=== PATIENT | male | born 1980 | race Caucasian/White ===

== ENCOUNTER 2016-12-25 10:09 | Emergency (ER) | payer OTHER ==
[~2016-12-25] VITALS: Ht 177.8 cm; Wt 104.3 kg
[~2016-12-25 10:09] MED LIST: BUPR100T8 PO; RISP2TAB3 PO; TEMA30CA4 PO; TOPI50TA16 PO
[2016-12-25 10:11] VITALS: TEMP 36.4; Ht 177.8 cm; Wt 104.3 kg
[2016-12-25] MEDS ORDERED: SODIUM CHLORIDE 0.9% 1000ML 1,000 ML IV STA (10:55)
[2016-12-25] MEDS ORDERED: KETOROLAC TROMETHAMINE 30 MG/ML VIAL IV STA ×2 (10:55→11:04)
[2016-12-25] MEDS ORDERED: ONDANSETRON INJ 2 MG/ML 2 ML VIAL IV STA (11:04)
[2016-12-25] MEDS ORDERED: GI COCKTAIL PO STA (11:04)
[2016-12-25 11:06] LABS: URINE APPEARANCE CLEAR (CLEAR); URINE BILIRUBIN NEG (NEG); URINE COLOR YELLOW; URINE EPITHELIAL CELL AUTO 0-5 /lpf (0-5); URINE NITRITE NEG (NEG); URINE PH 7.5 (4.5-7.5); URINE SPECIFIC GRAVITY 1.015 (1.000-1.030); UROBILINOGEN NEG (NEG); ZZUR CULT IF INDIC CLEAN CATCH NO
[2016-12-25 11:08] LABS: MANUAL MICROSCOPIC REQUIRED? NO; REVIEW REQ? NO
[2016-12-25] MEDS ORDERED: LIDOCAINE HCL 2% VISC SOLN 20 ML UDC ONE (11:11)
[2016-12-25] MEDS ORDERED: ALUMINUM/MAGNESIUM SUSP 30 ML UDC ONE (11:11)
[2016-12-25 11:50] LABS: BASO % 0.1 %; BASO ABS # 0.01 K/uL (0-0.2); COMPLETE YES; HEMATOCRIT 42.4 % (42-52); IG% 0.4 %; LYMPH % 22.3 %; LYMPH ABS # 1.49 K/uL (1.2-3.4); MEAN CELL VOLUME 89.3 fL (80-100); MEAN CORPUSCULAR HEMOGLOBIN 32.4 pg (25-34); MEAN CORPUSCULAR HGB CONC 36.3 g/dl (32-36); MEAN PLATELET VOLUME 9.3 fL (7.4-10.4); MONO % 6.3 %; NEUT % 67.9 %; PLATELET COUNT 190 K/uL (130-400); RED BLOOD COUNT 4.75 M/uL (4.7-6.1); WHITE BLOOD COUNT 6.68 K/uL (4.8-10.8)
[2016-12-25 12:01] LABS: BUN/CREATININE RATIO 12.2 (10-20); CALCIUM 9.1 mg/dl (8.5-10.1); CREATININE 1.1 mg/dl (0.60-1.40); POTASSIUM 3.7 mmol/L (3.5-5.1)
--- NOTE | 2016-12-25 12:07 | DIAGNOSTIC IMAGING REPORT ---
ABDOMEN 2VIEW W/PA CHEST RTN HISTORY: 36 years-old Male luq abd pain acute left upper quadrant abdominal pain. COMPARISON: Acute abdominal series radiographs 04/06/2015 TECHNIQUE: Frontal view of the chest with erect and supine views of the abdomen FINDINGS: Cardiomediastinal and hilar silhouettes are within normal limits. No pneumothorax, pleural effusion or focal airspace consolidation. Cholecystectomy clips are noted. Surgical clips within the right lower pelvis are also present. There is no pneumoperitoneum on the upright projection. No urolithiasis identified. There are multiple nondilated air-filled loops of bowel throughout the abdomen with scattered air-fluid levels. No fracture. IMPRESSION: 1. Multiple nondilated air-filled loops of bowel throughout the abdomen with scattered air-fluid levels is nonspecific. Differential considerations would include enteritis or ileus. 2. No evidence of bowel obstruction or pneumoperitoneum. 3. No acute cardiopulmonary process. The above report was generated using voice recognition software. It may contain grammatical, syntax or spelling errors. Electronically signed by: Conor Marina M.D. 12/25/2016 12:06 PM Dictated Date/Time: 12/25/2016 12:03 PM
[2016-12-25] MEDS ORDERED: MECLIZINE HCL 25 MG TAB PO STA (12:16)
[2016-12-25] MEDS ORDERED: TPM100 PO (12:18)
[2016-12-25] MEDS ORDERED: WLLSR150 PO (12:18)
[2016-12-25] MEDS ORDERED: TRAZ100T29 PO (12:18)
[2016-12-25] MEDS ORDERED: PANT40TA PO (12:18)
[2016-12-25 12:54] VITALS: BP 139/96; PULSE 55; O2SAT 100
--- NOTE | 2016-12-25 17:04 | EMERGENCY ROOM VISIT NOTE ---
History Report prepared by Marychuy: Vanessa Cedeno Under the Supervision of: Dr. Davin Marks D.O. First contact with patient: 10:37 Chief Complaint: ABDOMINAL PAIN Stated Complaint: ABD. PAIN IN LEFT UPPER QUAD Nursing Triage Summary: abdominal pain started on friday. denies v/d History of Present Illness The patient is a 36 year old male who presents to the Emergency Room with complaints of worsening LUQ abdominal pain for the past 5 days. The patient celebrated his birthday 6 days ago and went out drinking. He states that he had too much to drink and "over did it" that night. He woke up the next morning with LUQ abdominal pain. He went to the ED in [place] that night. They thought it was gastritis and gave the patient a GI cocktail. He was placed on Protonix and told to eat a bland diet. The patient states that this has not helped his pain. A couple of days ago he noticed some bruising around the area that is painful. He rates his pain as a 9/10 in severity. Movement exacerbates his pain. It is not worse with eating or drinking and he has been eating and drinking normally. Pt denies headache, change in vision, fevers, chest pain, shortness of breath, nausea, vomiting, diarrhea, pain with urination, and testicular pain. He does not take any blood thinners. He has been having normal bowel movements. Source of History: patient Onset: 5 days ago Position: abdomen (LUQ) Symptom Intensity: 9/10 Timing: worsening Modifying Factors (Worsening): movement Associated Symptoms: No fevers, No headache, No chest pain, No SOB, No nausea, No vomiting, No diarrhea, No urinary symptoms Review of Systems See HPI for pertinent positives & negatives. A total of 10 systems reviewed and were otherwise negative. Past Medical & Surgical Medical Problems: (1) Bipolar II disorder Surgical Problems: (1) Hx of appendectomy (2) Hx of cholecystectomy Family History Diabetes mellitus FH: cancer FH: gallbladder disease FH: heart disease FH: lung disease Hypertension Kidney disease Kidney stones Social History Smoking Status: Never Smoker Alcohol Use: occasionally Drug Use: marijuana Marital Status: single Housing Status: lives alone Occupation Status: employed Current/Historical Medications Scheduled Bupropion HCl (Bupropion HCl Sr), 150 MG PO QAM Pantoprazole Sodium (Protonix), 40 MG PO DAILY Risperidone (Risperdal), 2 MG PO HS Topiramate (Topiramate), 100 MG PO DAILY Scheduled PRN Trazodone Hcl (Trazodone), 200 MG PO HS PRN for Sleep Allergies Coded Allergies: Penicillins (Unverified Allergy, Unknown, throat swelling, 12/25/16) Physical Exam Vital Signs Date Time Temp Pulse Resp B/P (MAP) Pulse Ox O2 Delivery O2 Flow Rate FiO2 12/25/16 12:54 55 15 139/96 100 12/25/16 12:17 52 17 148/104 100 Room Air 12/25/16 11:15 54 16 124/83 99 Room Air 12/25/16 10:11 36.4 89 18 158/100 98 Physical Exam GENERAL: alert, sitting up in bed, well appearing, well nourished, no distress, non-toxic EYE EXAM: normal conjunctiva OROPHARYNX: no exudate, no erythema, lips, buccal mucosa, and tongue normal and mucous membranes are moist NECK: supple, no nuchal rigidity, no adenopathy, non-tender LUNGS: Clear to auscultation. Normal chest wall mechanics HEART: no murmurs, S1 normal and S2 normal ABDOMEN: abdomen soft, bruise on left upper flank/quadrant with acute tenderness to palpation, normo-active bowel sounds, no masses, no rebound or guarding. BACK: Back is symmetrical on inspection and there is no deformity, no midline tenderness, no CVA tenderness. SKIN: no rashes and no bruising UPPER EXTREMITIES: upper extremities are grossly normal. LOWER EXTREMITIES: No pitting edema. NEURO EXAM: Normal sensorium, cranial nerves II-XII grossly intact, normal speech, no gross weakness of arms, no gross weakness of legs. Medical Decision & Procedures ER Provider Diagnostic Interpretation: Radiology results as stated below per my review and the radiologist's interpretation: ABDOMEN 2VIEW W/PA CHEST RTN HISTORY: 36 years-old Male luq abd pain acute left upper quadrant abdominal pain. COMPARISON: Acute abdominal series radiographs 04/06/2015 TECHNIQUE: Frontal view of the chest with erect and supine views of the abdomen FINDINGS: Cardiomediastinal and hilar silhouettes are within normal limits. No pneumothorax, pleural effusion or focal airspace consolidation. Cholecystectomy clips are noted. Surgical clips within the right lower pelvis are also present. There is no pneumoperitoneum on the upright projection. No urolithiasis identified. There are multiple nondilated air-filled loops of bowel throughout the abdomen with scattered air-fluid levels. No fracture. IMPRESSION: 1. Multiple nondilated air-filled loops of bowel throughout the abdomen with scattered air-fluid levels is nonspecific. Differential considerations would include enteritis or ileus. 2. No evidence of bowel obstruction or pneumoperitoneum. 3. No acute cardiopulmonary process. The above report was generated using voice recognition software. It may contain grammatical, syntax or spelling errors. Electronically signed by: Conor Marina M.D. 12/25/2016 12:06 PM Dictated Date/Time: 12/25/2016 12:03 PM Laboratory Results 12/25/16 11:30 Red Blood Count 4.75, Mean Corpuscular Volume 89.3, Mean Corpuscular Hemoglobin 32.4, Mean Corpuscular Hemoglobin Concent 36.3, Mean Platelet Volume 9.3, Neutrophils (%) (Auto) 67.9, Lymphocytes (%) (Auto) 22.3, Monocytes (%) (Auto) 6.3, Eosinophils (%) (Auto) 3.0, Basophils (%) (Auto) 0.1, Neutrophils # (Auto) 4.53, Lymphocytes # (Auto) 1.49, Monocytes # (Auto) 0.42, Eosinophils # (Auto) 0.20, Basophils # (Auto) 0.01 12/25/16 11:30 Test 12/25/16 10:28 12/25/16 11:30 Urine Color YELLOW Urine Appearance CLEAR (CLEAR) Urine pH 7.5 (4.5-7.5) Urine Specific [place] 1.015 (1.000-1.030) Urine Protein NEG (NEG) Urine Glucose (UA) NEG (NEG) Urine Ketones NEG (NEG) Urine Occult Blood NEG (NEG) Urine Nitrite NEG (NEG) Urine Bilirubin NEG (NEG) Urine Urobilinogen NEG (NEG) Urine Leukocyte Esterase NEG (NEG) Urine WBC (Auto) 0 /hpf (0-5) Urine RBC (Auto) 0-4 /hpf (0-4) Urine Hyaline Casts (Auto) 0 /lpf (0-5) Urine Epithelial Cells (Auto) 0-5 /lpf (0-5) Urine Bacteria (Auto) NEG (NEG) White Blood Count 6.68 K/uL (4.8-10.8) Red Blood Count 4.75 M/uL (4.7-6.1) Hemoglobin 15.4 g/dL (14.0-18.0) Hematocrit 42.4 % (42-52) Mean Corpuscular Volume 89.3 fL (80-100) Mean Corpuscular Hemoglobin 32.4 pg (25-34) Mean Corpuscular Hemoglobin Concent 36.3 g/dl (32-36) Platelet Count 190 K/uL (130-400) Mean Platelet Volume 9.3 fL (7.4-10.4) Neutrophils (%) (Auto) 67.9 % Lymphocytes (%) (Auto) 22.3 % Monocytes (%) (Auto) 6.3 % Eosinophils (%) (Auto) 3.0 % Basophils (%) (Auto) 0.1 % Neutrophils # (Auto) 4.53 K/uL (1.4-6.5) Lymphocytes # (Auto) 1.49 K/uL (1.2-3.4) Monocytes # (Auto) 0.42 K/uL (0.11-0.59) Eosinophils # (Auto) 0.20 K/uL (0-0.5) Basophils # (Auto) 0.01 K/uL (0-0.2) RDW Standard Deviation 39.0 fL (36.4-46.3) RDW Coefficient of Variation 12.0 % (11.5-14.5) Immature Granulocyte % (Auto) 0.4 % Immature Granulocyte # (Auto) 0.03 K/uL (0.00-0.02) Anion Gap 7.0 mmol/L (3-11) Est Creatinine Clear Calc Drug Dose 114.5 ml/min Estimated GFR () 101.0 Estimated GFR (Non- 87.1 BUN/Creatinine Ratio 12.2 (10-20) Calcium Level 9.1 mg/dl (8.5-10.1) Total Bilirubin 0.9 mg/dl (0.2-1) Direct Bilirubin 0.3 mg/dl (0-0.2) Aspartate Amino Transf (AST/SGOT) 19 U/L (15-37) Alanine Aminotransferase (ALT/SGPT) 27 U/L (12-78) Alkaline Phosphatase 101 U/L (45-117) Total Protein 7.5 gm/dl (6.4-8.2) Albumin 4.0 gm/dl (3.4-5.0) Lipase 142 U/L (73-393) Laboratory results per my review. Medications Administered Medications (Trade) Dose Ordered Sig/Kael Route Start Time Stop Time Status Last Admin Dose Admin Sodium Chloride 1,000 ml @ 999 mls/hr Q1H1M STAT IV 12/25/16 10:55 12/25/16 11:55 DC 12/25/16 11:26 999 MLS/HR Ketorolac Tromethamine (Toradol Inj) 30 mg NOW STAT IV 12/25/16 10:55 12/25/16 10:56 DC 12/25/16 11:26 30 MG Ondansetron HCl (Zofran Inj) 4 mg NOW STAT IV 12/25/16 11:04 12/25/16 11:06 DC 12/25/16 11:27 4 MG Al Hydroxide/Mg Hydroxide (Maalox Susp) 30 ml STK-MED ONCE .ROUTE 12/25/16 11:11 12/25/16 11:12 DC 12/25/16 11:26 30 ML Lidocaine HCl (Viscous Lidocaine 2% Soln) 20 ml STK-MED ONCE .ROUTE 12/25/16 11:11 12/25/16 11:12 DC 12/25/16 11:26 20 ML ED Course ED COURSE: Vital signs were reviewed and showed hypertensive. The patients medical record was reviewed The above diagnostic studies were performed and reviewed. ED treatments and interventions as stated above. 1054: The patient was evaluated in room A2. A complete history and physical examination was performed. 1055: Toradol 30 mg IV, NSS 1000 ml @ 999 mls/hr IV 1104: Zofran 4 mg IV, Toradol 30 mg IV, GI cocktail 24 ml PO 1216: Antivert tab 25 mg PO 1239: Upon reevaluation, the patient is feeling better and resting comfortably. I discussed my findings with the patient and he understands and agrees with the treatment plan. Based on the patients age, coexisting illnesses, exam and lab findings the decision to treat as an outpatient was made. The patient remained stable while under my care. The patient appeared well at the time of discharge. Medical Decision Differential diagnoses includes but is not limited to gastritis, peptic ulcer disease, GERD, gallbladder disease, pancreatitis, small bowel obstruction, acute coronary syndrome, pericarditis, ischemic bowel, irritable bowel disease, irritable bowel syndrome, appendicitis, diverticulitis, malignancy, hernia, urinary tract infection, torsion, perforation, trauma, infectious. Patient is a 36-year-old male who presents to the ER for left upper quadrant abdominal pain following being evaluated at outside facility. He notes he was drinking Friday night and does not remember the entire night. CBC, BMP, LFTs , lipase and UA was unremarkable. Obstruction series showed no obvious obstruction. On exam he had clear bruising where is having no tenderness in the left flank. He notes that the pain is superficial where I am palpating. I do favor this pain in the left upper quadrant is segmented bruise which likely occurred while drinking Friday night as he does not recall. With his vitals and blood work being unremarkable I do not feel the need to CT and at that time. Discussed with Pt concerning signs and symptoms to watch out for. Pt was instructed to follow up with their PCP and discussed with the patient their option to return to the ED at anytime for persistent or worsening symptoms. The appropriate anticipatory guidance and out-patient management, including indications for return to the emergency department, were explained at length to the patient and understood. Medication Reconcilliation Current Medication List: was personally reviewed by me Blood Pressure Screening Patient's blood pressure: Elevated blood pressure Blood pressure disposition: Elevated BP felt to be situational Impression Primary Impression: Abdominal wall contusion Scribe Attestation The scribe's documentation has been prepared under my direction and personally reviewed by me in its entirety. I confirm that the note above accurately reflects all work, treatment, procedures, and medical decision making performed by me. Departure Information Dispostion Home / Self-Care Referrals Tiara Baum M.D. (PCP) Forms Call Back Authorization, HOME CARE DOCUMENTATION FORM, IMPORTANT VISIT INFORMATION Patient Instructions Abdominal Pain - [facility], My [facility] Additional Instructions Please follow up with your primary care doctor with in the next 24 hours. Any worsening of your symptoms, please return to the ED immediately. This includes any fevers greater than 100.4, worsening pain, chest pain, shortness breath, persistent nausea, vomiting, unable to eat or drink, or any other concerning signs or symptoms from your standpoint. Problem Qualifiers Primary Impression: Abdominal wall contusion Encounter type: initial encounter Qualified Codes: S30.1XXA - Contusion of abdominal wall, initial encounter
== END 2016-12-25 12:50 | disposition home or self-care (01) ==
LOC: C.EDB 10:11 → C.EDA 12:50
DX: S30.1XXA Contusion of abdominal wall, initial encounter (principal); X58.XXXA Exposure to other specified factors, initial encounter; F31.9 Bipolar disorder, unspecified; Z83.3 Family history of diabetes mellitus; Z82.49 Family history of ischemic heart disease and other diseases of the circulatory system; F12.90 Cannabis use, unspecified, uncomplicated